=== PATIENT | male | born 1990 | race African-American/Black ===

== ENCOUNTER 2017-05-03 18:25 | Emergency (ER) | payer SELFPAY ==
[~2017-05-03] VITALS: Ht 182.9 cm; Wt 103.2 kg
[~2017-05-03 18:25] MED LIST: AMOXICILLIN 50500 MG PO; FIORICET 325 MG1 TA1 PO; FLEXERIL 1010 MG/TAB PO; NO HOME MEDICATIONS; NORCO 325 MG-51 TAB PO; ZOVIRAX800 MG PO
[2017-05-03 18:28] VITALS: TEMP 98
[2017-05-03 20:13] VITALS: BP 144/91; PULSE 87
== END 2017-05-03 20:20 | disposition home or self-care (01) ==
LOC: COL.ER 18:25
DX: S80.11XA Contusion of right lower leg, initial encounter (principal); K64.5 Perianal venous thrombosis; G57.10 Meralgia paresthetica, unspecified lower limb; X58.XXXA Exposure to other specified factors, initial encounter